=== PATIENT | female | born 1940 | race Caucasian/White ===

== ENCOUNTER 2022-01-16 15:43 | Emergency (ER) | payer MEDICARE, BC ==
[~2022-01-16] VITALS: Ht 165.1 cm; Wt 74.5 kg
[2022-01-16] MEDS ORDERED: IV NORMAL SALINE 500ML 500 ML IV ONE (16:15)
--- NOTE | 2022-01-16 16:16 | PHYS DOC ---
General Adult EDM: Chief Complaint: DIZZY/LIGHT HEADED HPI: HPI: 81-year-old female presents with dizziness. The patient has struggled with dizziness for quite some time. Over the last few months she feels it has become more persistent. She tells me she now has daily dizziness when she stands up and or turns her body too quickly. She is not dizzy while sitting down. She has not seen ENT. She has not had blood work done in a long time. No change in medications or supplements. She denies fever or chills. She is very anxious about not being able to function on her own in public. Review of Systems: Review of Systems: Constitutional: Denies fever or chills Eyes: Denies change in visual acuity HENT: Denies nasal congestion or sore throat Respiratory: Denies cough or shortness of breath Cardiovascular: Denies chest pain or edema GI: Denies abdominal pain, nausea, vomiting, bloody stools or diarrhea : Denies dysuria Musculoskeletal: Denies back pain or joint pain Integument: Denies rash Neurologic: Dizziness. Denies headache, focal weakness or sensory changes Endocrine: Denies polyuria or polydipsia Lymphatic: Denies swollen glands Psychiatric: Anxiety Current Medications: Current Meds: Current Medications Medications (Trade) Dose Ordered Sig/Amos Start Time Stop Time Status Last Admin Dose Admin Sodium Chloride 500 ml @ 0 mls/hr 1X ONCE 01/16/22 16:15 01/16/22 16:16 Allergies: Allergies: Allergies Coded Allergies Type Severity Reaction Last Updated Verified codeine Allergy Unknown 01/16/22 Yes oxycodone Allergy Unknown 01/16/22 Yes Physical Exam: PE: Constitutional: Well developed, well nourished, no acute distress, non-toxic appearance. [] HENT: Normocephalic, atraumatic, bilateral external ears normal, oropharynx moist, no oral exudates, nose normal. [] Eyes: PERRLA, EOMI, conjunctiva normal, no discharge. [] Neck: Normal range of motion, no tenderness, supple, no stridor. [] Cardiovascular: Heart rate regular rhythm, no murmur [] Lungs & Thorax: Bilateral breath sounds clear to auscultation [] Abdomen: Bowel sounds normal, soft, no tenderness, no masses, no pulsatile masses. [] Skin: Warm, dry, no erythema, no rash. [] Back: No tenderness, no CVA tenderness. [] Extremities: No tenderness, no cyanosis, no clubbing, ROM intact, no edema. [] Neurologic: Alert and oriented X 3, normal motor function, normal sensory function, no focal deficits noted. [] Psychologic: Affect normal, judgement normal, mood anxious. [] EKG: EKG: Sinus rhythm, rate 72, leftward axis, no ST elevation depression. [] Radiology/Procedures: Radiology/Procedures: [] Impressions: XR CHEST 1V Clinical History: Reason: dizziness / Spl. Instructions: / History: Technique: AP view of the chest was obtained at 01/16/2022 4:17 PM. Comparison: None. Findings: The cardiomediastinal silhouette is normal. The pulmonary vasculature is normal. There is linear opacities in the lung bases. Impression: Left basal infiltrate likely discoid atelectasis. Electronically signed by: Liliya Davila III, MD (01/16/2022 4:21 PM) [facility] DICTATED AND SIGNED BY: LILIYA DAVILA III, MD DATE: 01/16/22 1620 CC: EMILIE GRIMES DO; KARL MIRANDA ~ CT head without contrast PQRS statement: CT scans at this facility use dose reduction including either automated exposure control, iterative reconstructions, and /or weight based radiation dosing via mA and kV modification when appropriate to reduce radiation dose to as low as reasonably achievable. HISTORY: Persistent dizziness. Balance issues. FINDINGS: No intracranial hemorrhage, mass, hydrocephalus, extra-axial fluid collections or infarction. Orbits, mastoids and bones are unremarkable. IMPRESSION: No acute abnormality. Electronically signed by: Donato Durham MD (01/16/2022 4:57 PM) [facility] DICTATED AND SIGNED BY: DONATO DURHAM MD DATE: 01/16/22 1654 CC: EMILIE GRIMES DO; KARL MIRANDA ~ Heart Score: C/O Chest Pain: N/A Risk Factors: Risk Factors: DM, Current or recent (<one month) smoker, HTN, HLP, family history of CAD, obesity. Risk Scores: Score 0 - 3: 2.5% MACE over next 6 weeks - Discharge Home Score 4 - 6: 20.3% MACE over next 6 weeks - Admit for Clinical Observation Score 7 - 10: 72.7% MACE over next 6 weeks - Early Invasive Strategies Course & Med Decision Making: Course & Med Decision Making Pertinent Labs and Imaging studies reviewed. (See chart for details) Chest x-ray shows some atelectasis. Head CT is negative for acute findings. Her labs are unremarkable. Not sure what is causing the patient's dizziness. I advised that she follow-up with her primary physician and consider ENT consult. She is stable for discharge at this time. [] Dragon Disclaimer: Dragon Disclaimer: This electronic medical record was generated, in whole or in part, using a voice recognition dictation system. Departure Departure: Impression: Primary Impression: Dizziness Disposition: HOME / SELF CARE / HOMELESS Condition: STABLE Referrals: KARL MIRANDA (PCP) Patient Instructions: Dizziness, [id number] EMILIE GRIMES DO January 16, 2022 16:16
--- NOTE | 2022-01-16 16:23 | RAD ---
XR CHEST 1V Clinical History: Reason: dizziness / Spl. Instructions: / History: Technique: AP view of the chest was obtained at 01/16/2022 4:17 PM. Comparison: None. Findings: The cardiomediastinal silhouette is normal. The pulmonary vasculature is normal. There is linear opac ities in the lung bases. Impression: Left basal infiltrate likely discoid atelectasis. Electronically signed by: Ben Ferrer III, MD (01/16/2022 4:21 PM) [facility]
[2022-01-16 16:30] VITALS: BP 151/78
[2022-01-16 16:46] LABS: BASO % 1 % (0-3); EOS # 0.1 x10^3/uL (0.0-0.7); EOS % 2 % (0-3); HEMATOCRIT 48.4 % (36.0-47.0); HEMOGLOBIN 16.3 g/dL (12.0-15.5); LYMPH % 25 % (24-48); MEAN CORPUSCULAR HEMOGLOBIN 32 pg (25-35); MEAN CORPUSCULAR HGB CONC 34 g/dL (31-37); MEAN CORPUSCULAR VOLUME 95 fL (79-100); MONO # 0.6 x10^3/uL (0.0-1.1); MONO % 8 % (0-9); NEUT # 5.3 x10^3uL (1.8-7.7); NEUT % 65 % (31-73); PLATELET COUNT 271 x10^3/uL (140-400); RED CELL DISTRIBUTION WIDTH 13.4 % (11.5-14.5); WHITE BLOOD COUNT 8.1 x10^3/uL (4.0-11.0)
--- NOTE | 2022-01-16 17:00 | RAD ---
CT head without contrast PQRS statement: CT scans at this facility use dose reduction including either automated exposure cont rol, iterative reconstructions, and /or weight based radiation dosing via mA and kV modification when appropriate to reduce radiation dose to as low as reasonably achievable. HISTORY: Persistent dizziness. Balance issues. FINDINGS: No intracranial hemorrhage, mass, hydrocephalus, extra-axial fluid collections or infarctio n. Orbits, mastoids and bones are unremarkable. IMPRESSION: No acute abnormality. Electronically signed by: Jori Durham MD (01/16/2022 4:57 PM) [facility]
[2022-01-16 17:02] LABS: INFLUENZA A PATIENT NEGATIVE (NEGATIVE); INFLUENZA B PATIENT NEGATIVE (NEGATIVE)
[2022-01-16 17:17] LABS: ALBUMIN 3.9 g/dL (3.4-5.0); ALBUMIN/GLOBULIN RATIO 1.2 (1.0-1.7); CALCIUM 9.5 mg/dL (8.5-10.1); CREATININE 0.6 mg/dL (0.6-1.0); GFR 95.9; POTASSIUM 4.3 mmol/L (3.5-5.1); TOTAL BILIRUBIN 0.7 mg/dL (0.2-1.0); TOTAL PROTEIN 7.1 g/dL (6.4-8.2)
== END 2022-01-16 18:21 | disposition home or self-care (01) ==
LOC: ER 15:43
DX: R42 Dizziness and giddiness (principal); Z20.822 Contact with and (suspected) exposure to COVID-19
CPT/HCPCS: 70450; 71045; 80053; 83880; 84484; 85025; 87428; 93005; 96360; 99285; C9803; J7040; U0003